=== PATIENT | male | born 1945 | race Caucasian/White ===

== ENCOUNTER → 2017-05-24 | Outpatient (CLI) | payer OTHER, BC ==
[~2017-05-24] MED LIST: ACTOS 45 MG45 M1 PO; ADULT LOW DOSE81 MG PO; ALLOPURINOL 30300 M1 PO; AMARYL4 MG PO; AUGMENTIN 500-1 EACH PO; CARTIA; CELEBREX 200 M200 M1 PO; CELEBREX 200 M200 MG PO; CEPHALEXIN 250250 M1 PO; CLARITIN10 MG PO; COLACE100 MG PO; COZAAR 50 MG TA50 M2 PO; DILTIAZEM ER240 M1 PO; DIOVAN PO; DIOVAN40 MG PO; GLUCOPHAGE1000 MG PO; GLUCOTROL5 MG PO; HYDROCODONE-AP1 EA12 PO; HYTRIN 2MG CAPSU2 M1 PO; LIPITOR10 MG PO; NORCO 5-325 TA1 EACH PO; PROTONIX40 M2 PO; TERAZOSIN PO; TRILIPIX135 MG PO
== END ==
LOC: RAD 10:37
DX: M16.12 Unilateral primary osteoarthritis, left hip (principal); I10 Essential (primary) hypertension

== ENCOUNTER 2018-12-30 13:16 | Inpatient (IN) | payer OTHER, BC ==
[~2018-12-30] VITALS: Ht 172.7 cm; Wt 127.6 kg
--- NOTE | ~2018-12-30 | HC ---
[facility] [place] [address] CONSULTATION Name: ERIC MACK Room #: 461-P ADM IN M.R.#: [id number] Admission: 12/30/18 ������������������ Attend Phys: Ethan Ambrocio MD Discharge: ������������������ Date of : 45 Report #: [id number] THIS REPORT FOR: //name// CC: Breezy Ambrocio DATE OF SERVICE: 01/01/2019 HISTORY OF PRESENT ILLNESS: The patient is a 73-year-old white male who fell in the grocery store, getting out of his car. He sustained a left shoulder dislocation, which was reduced in the Emergency Department. He is noted to be very unsteady with a cane. He has been seen by Neurology, diagnosed with gait, ataxia. MRI of the brain is pending. He was seen by Orthopedics. He is in an immobilizer with transition to a sling p.r.n., can wean out of it p.r.n. No external rotation greater than 30 degrees for 6 weeks. He denies that he hit his head with the fall. We are seeing him in rehabilitation medicine consultation. PAST MEDICAL HISTORY: Includes diabetes mellitus type 2, hypertension, elevated lipids and has a history of diabetic neuropathy and is on Neurontin. Obstructive sleep apnea with CPAP at night, hypertension, elevated cholesterol. MEDICATIONS: Please see the full medication listing. ALLERGIES: JENNIFER INHIBITORS. SOCIAL HISTORY: Lives in a house with , no steps, was driving premorbidly used a walker during the day. a cane at night. is retired and could be of assistance. REVIEW OF SYSTEMS: No current complaints of chest pain, shortness of breath or abdominal discomfort. PAST SURGICAL HISTORY: Includes a prior right shoulder rotator cuff. He has had a hemorrhoidectomy, tonsillectomy, cholecystectomy, cataract surgery bilaterally. HABITS: No history of tobacco or alcohol abuse. REVIEW OF SYSTEMS: No fever or chills. He has premorbid numbness, tingling. No current chest pain, shortness of breath or abdominal discomfort. PHYSICAL EXAMINATION: GENERAL: A 73-year-old pleasant, overweight white male in no obvious distress. VITAL SIGNS: Last recorded temperature 97.7, pulse 103, respirations 20, blood pressure 167/86. The patient is alert. [address] [address] CONSULTATION Name: ERIC MACK Room #: 461-P [facility] IN M.R.#: [id number] Admission: 12/30/18 ������������������ Attend Phys: Ethan Ambrocio MD Discharge: ������������������ Date of : 45 Report #: [id number] HEENT: Appeared to be benign. Facies are symmetric. I did not check his vision. EXTREMITIES: He has functional range of motion of the right upper extremity, strength is a grade 4-/5. Left upper extremity is in the shoulder immobilizer. He can move the thumb and fingers. In his lower extremities, there is no focal calf swelling. Strength is grade 4-/5. DTRs are trace to 1. He has the decreased distal sensation. ASSESSMENT: A 73-year-old white male with the following problem list: 1. Gait ataxia. Neurology has seen him. MRI of the brain is currently pending. 2. Fall with dislocation, left shoulder, status post reduction in the Emergency Department. 3. Diabetes mellitus with premorbid diabetic neuropathy. 4. Hypertension. 5. Hyperlipidemia. 6. Exogenous obesity. 7. Obstructive sleep apnea. PLAN: MRI of the brain is currently pending. Would also like to clarify from Orthopedics when he would be able to start weightbearing through the left upper extremity. PT is to evaluate him as well. We will be glad to follow along with you regarding his rehab therapy needs. I am uncertain at this time if he meets criteria for an acute 5 North rehab stay, but we will follow along for now. ��������������������������������������������� ���������������������������������������� By: ��������������������������������������������� 1125 [id number] Shiv Cadena MD /PMT
[2018-12-30 13:16] VITALS: BP 165/58
[2018-12-30] MEDS ORDERED: METFORMIN HCL500 MG PO (13:38)
[2018-12-30] MEDS ORDERED: GLIPIZIDE ER5 MG PO (13:38)
[2018-12-30] MEDS ORDERED: COLACE100 MG PO (13:39)
[2018-12-30] MEDS ORDERED: LIPITOR80 MG PO (13:39)
[2018-12-30] MEDS ORDERED: COZAAR 25 MG TA25 M1 PO (13:40)
[2018-12-30] MEDS ORDERED: NEURONTIN 300300 M1 PO (13:40)
[2018-12-30] MEDS ORDERED: HYTRIN 2MG CAPSU2 M1 PO (13:40)
[2018-12-30] MEDS ORDERED: DILTIAZEM 24HR240 M2 PO (13:41)
[2018-12-30] MEDS ORDERED: ASPIR 8181 MG PO (13:41)
[2018-12-30] MEDS ORDERED: CELEBREX 200 M200 M1 PO (13:42)
[2018-12-30] MEDS ORDERED: VITAMIN D31000 UNIT PO (13:42)
[2018-12-30] MEDS ORDERED: NEXIUM40 MG PO (13:43)
[2018-12-30] MEDS ORDERED: TRAMADOL 50 MG50 MG PO (15:21)
[2018-12-30] MEDS ORDERED: NAPROXEN375 MG PO (15:21)
[2018-12-30 17:32] LABS: HEMOGLOBIN 12.2 gm/dL (14.0-18.0); MCH 28.9 pg (26.0-34.0); MCHC 32.1 g/dL (28.0-37.0); MCV 90.1 fL (80.0-100.0); RBC 4.22 mil/uL (4.50-6.00); RDW 14.3 % (10.5-14.5); WBC 14.2 thou/uL (4.0-11.0)
[2018-12-30 17:33] VITALS: BP 166/64
[2018-12-30 17:42] LABS: ANION GAP 10 mmol/L (7-16); BUN 24 mg/dL (7-18); CALCIUM 8.6 mg/dL (8.5-10.1); CHLORIDE 104 mmol/L (98-107); CO2 24 mmol/L (21-32); CREATININE 0.9 mg/dL (0.7-1.3); GLUCOSE 232 mg/dL (74-106); POTASSIUM 4.2 mmol/L (3.5-5.1); SODIUM 138 mmol/L (136-145)
[2018-12-30 17:52] LABS: ALBUMIN 3.1 g/dL (3.4-5.0); MAGNESIUM 1.2 mg/dL (1.8-2.4); SGOT 14 U/L (15-37); SGPT 19 U/L (30-65); TOTAL BILIRUBIN 0.6 mg/dL (<0.1-1.0); TOTAL PROTEIN 6.2 g/dL (6.4-8.2); TROPONIN-I <0.06 ng/mL (<0.06)
[2018-12-30 17:55] LABS: ALBUMIN 3.3 g/dL (3.4-5.0)
[2018-12-30 18:25] LABS: TSH 2.186 uIU/mL (0.358-3.740)
[2018-12-30 19:21] LABS: URINE BILIRUBIN NEGATIVE (Negative); URINE BLOOD NEGATIVE (Negative); URINE CLARITY CLEAR; URINE COLOR YELLOW; URINE GLUCOSE-RANDOM* 2+ (Negative); URINE KETONES NEGATIVE (Negative); URINE LEUKOCYTES NEGATIVE (Negative); URINE NITRITE NEGATIVE (Negative); URINE PROTEIN (DIPSTICK) NEGATIVE (Negative); URINE SPECIFIC GRAVITY 1.025 (1.005-1.035); URINE UROBILINOGEN 0.2 E.U./dl (0.2-1.0)
[2018-12-30 19:45] VITALS: BP 144/60
[2018-12-30 20:00] VITALS: BP 144/51
[2018-12-30 20:30] LABS: CASTS None Seen /LPF (None Seen); SQUAMOUS 0-3 Few /LPF (0-3); URINE RBC 0-2 Rare /HPF (0-2); URINE WBC 0-5 Rare /HPF (0-5)
[2018-12-30 20:31] LABS: BACTERIA None Seen /HPF (None Seen); CRYSTALS None Seen /LPF (None Seen); MUCUS 0-3 Light strn/LPF (None Seen)
[2018-12-30] MEDS ORDERED: NEURONTIN600 MG PO (21:47)
--- NOTE | 2018-12-31 03:09 | NUR ---
PATIENT AOX4 MAKES NEEDS KNOWN. PATIENT ADMITTED FOR LEFT SHOULDER DISLOCATION. PAIN CONTROLLED THIS SHIFT. SCD ON. PATIENT HAS IMMOBILIZER ON LEFT SHOULDER. PATIENT USE URINAL. CALLED REHAB FOR PATIENT CONSULT WITH DR. KISER . PATIENT HAS C PAP AT NIGHT O2 SAT >95%. PATIENT NEEDS MAXIMUM ASSISTANCE WITH ADL, BED MOBILITY, TRANSFER X 2 ASSIST AND TOILETING. NEW ORDER TO AMBULATE PATIENT,PATIENT REFUSED TO AMBULATE. PATIENT TOLD THIS NURSE HE TAKES GABAPETIN 600 MG TID AND REQUESTED TRAMADOL FOR PAIN. CALLED [employer] CHARTING CLERK NEW ORDER FOR GABAPETIN AND TRAMADOL. PATIENT IN BED ASLEEP AT THIS TIME BREATHING REGULAR AND UNLABOURED.
[2018-12-31 04:15] VITALS: BP 150/66
[2018-12-31 08:00] VITALS: BP 141/49
--- NOTE | 2018-12-31 10:57 | EKG ---
[address] [address] ELECTROCARDIOGRAM REPORT Name: ERIC MACK Room #: 461-P ADM IN M.R.#: [id number] ������������������ Admission: 12/30/18 ������������������ Attend Phys: Ethan Ambrocio MD Discharge: ������������������ Date of : 45 Report #: [id number] ����������������������������������������������������������������� [id number] THIS REPORT FOR: //name// [facility] Test Date: 2018-12-31 Test Time: 07:20:54 Pat Name: ERIC MACK Department: Room: 461 Gender: M Education Reporter: ALESSANDRO : 1945 Requested By: Darci Oneill Order Number: [id number] MD: Raghu Lagos Measurements Intervals [place] Rate: 62 P: 79 TX: 194 QRS: 58 QRSD: 103 T: 56 QT: 406 QTc: 413 Interpretive Statements Sinus rhythm Nonspecific ST segment abnormality Compared to ECG 09/25/2009 10:09:01 No significant changes Electronically Signed On 12-31-2018 10:57:20 CDT by Raghu Lagos [email or web address] ��������������������������������������������� <ELECTRONICALLY SIGNED> ���������������������������������������� By: Raghu Lagos MD ��������������������������������������������� 12/31/18 1057 0720 9 Raghu Lagos MD /SELENA
[2018-12-31 12:40] LABS: CALCIUM 8.9 mg/dL (8.5-10.1); CREATININE 0.7 mg/dL (0.7-1.3); MAGNESIUM 1.5 mg/dL (1.8-2.4); POTASSIUM 4.6 mmol/L (3.5-5.1)
[2018-12-31 13:16] LABS: HEMATOCRIT 39.4 % (42.0-52.0); HEMOGLOBIN 12.7 gm/dL (14.0-18.0); MCH 28.9 pg (26.0-34.0); MCHC 32.2 g/dL (28.0-37.0); RBC 4.38 mil/uL (4.50-6.00); RDW 14.1 % (10.5-14.5); WBC 10.8 thou/uL (4.0-11.0)
[2018-12-31 15:00] VITALS: BP 159/55
--- NOTE | 2018-12-31 15:25 | NUR ---
PT A&OX4, VSS, DENIES PAIN. PATIENT RIGHT ARM IN SLING. PATIENT SHUFFLES WHEN WALKING AND UNSTEADY. NEUROLOGIST CONSULTED AND IN TO SEE PATIENT. MRI AND CT ORDERS PLACED. PT USES BEDSIDE COMMODE WITH ASSIST AND URINAL. FAMILY AT BEDSIDE, WILL CONTINUE TO MONITOR.
[2018-12-31 17:09] LABS: IgA 156 mg/dL (61-437); IgG 731 mg/dL (700-1600); IgM 83 mg/dL (15-143)
[2018-12-31 19:48] VITALS: BP 162/56
--- NOTE | 2019-01-01 01:29 | NUR ---
PATIENT ASSESSED AND WAS SITTING UP IN CHAIR . HAS A LEFT SLING ON LEFT ARM. ALERT X 4. SKIN WARM AND DRY. RESP EVEN AND UNLABORED. HAVING TROUBLE WALKING LIKES HE SAYS "MY MIND NOT CONNECTED TO MY BODY". [place] IS OK. [place] [facility] [place] PIVOT TO BED. REPOSITIONS SELF . NO SKIN ISSUES. IV SITE HEALTHY HAVING FLUIDS INFUSING WELL. CPAP ON AT NIGHT. REMAINS ALERT X 4.TAKING FLUIDS AND DIET WELL. DENIES ANY PAIN TONIGHT SO FAR. CONT TO MONITOR PAIN . CONT PLAN OF CARE.VOIDS PER URINAL.
[2019-01-01 06:07] LABS: HEMATOCRIT 37.3 % (42.0-52.0); MCH 29.1 pg (26.0-34.0); MCHC 32.2 g/dL (28.0-37.0); MCV 90.4 fL (80.0-100.0); RBC 4.12 mil/uL (4.50-6.00); RDW 14.5 % (10.5-14.5)
[2019-01-01 06:23] LABS: CALCIUM 8.4 mg/dL (8.5-10.1); CREATININE 0.7 mg/dL (0.7-1.3); MAGNESIUM 1.5 mg/dL (1.8-2.4); POTASSIUM 4.3 mmol/L (3.5-5.1)
[2019-01-01 07:30] VITALS: BP 167/86
--- NOTE | 2019-01-01 13:29 | NUR ---
ASSUMED CARE AT 0700, SHIFT ASSESSMENT DONE, MEDS GIVEN, VSS. DENIES PAIN, NAUSEA, VOMITING. WENT FOR MRI THIS AM. WORKED WITH PHYSICAL AND OCCUPATONAL THERAPHY. WALKED OUT IN THE HALLWAY. CARE HANDED OVER TO J LUIS DIEHL AT 1200
--- NOTE | 2019-01-01 15:50 | NUR ---
PT ADMITTED RELATED TO DISLOCATION OF LEFT SHOULDER S/P REDUCTION. CM REVIEWED CHART AND SPOKE WITH CARE TEAM. CM MET WITH PT AND SPOUSE AT BEDSIDE THIS DAY.PT IS A&O X4. CM ROLE INTRODUCED. PT AND SPOUSE INDICATED THAT THEY LIVE IN A HOUSE WITH RAMPS TO ENTER AND NO STEPS INSIDE. PT INDICATED HE HAS 1 STEP TO GET INTO THE SHOWER. PT INDICATED HE HAS A CANE, 3 WALKERS, A FWW, 4WW, AND ANOTHER KIND. PT'S INDICATED THAT THEY WERE HOPEFUL THAT PT MIGHT BE ABLE TO GO TO 5N UPON DC. CONSULT ENTERED. CM TO FOLLOW INDICATED WITH DC PLANNING.
[2019-01-01 19:25] VITALS: BP 162/59
--- NOTE | 2019-01-02 05:47 | NUR ---
ASSESSMENTS COMPLETED. PT A&OX4. NO C/O PAIN. WALKS WITH 1 ASSIST AND A WALKER. PT WEARS A CPAP @ NIGHT. V/S STABLE. USES THE URINAL AND BSC FOR TOILETING.
[2019-01-02 08:02] VITALS: BP 149/58
--- NOTE | 2019-01-02 12:50 | NUR ---
PT A&OX4, VSS, DENIES PAIN. LEFT ARM REMAINS IN SLING. MEDICATION GIVEN ORDERED. NEW IV PLACED D/T OTHER CLOTTING OFF. PATIENT PARTICIPATED WITH PT AND OT TODAY. ASSISTANCE TO BEDSIDE COMMODE. AT BEDSIDE, NO SIGNS OF DISTRESS, WILL CONTINUE TO MONITOR.
[2019-01-02 14:40] VITALS: BP 146/50
--- NOTE | 2019-01-02 17:57 | NUR ---
PATIENT MY POSSIBLY BE ADMITTED TO ACUTE REHAB TOMORROW PENDING BED AVAILABILTIY. IF BED IS NOT AVAILABLE TOMORROW, IT MAY BE TUESDAY BEFORE A BED MAY BE OPEN AT [facility]. HOUSING GRANT ANALYST IS AWARE AND PHYSICIAN UPDATED BY ALEXIA CROSS WITH DR. KISER. THANK YOU FOR THIS REFERRAL.
[2019-01-02 19:07] LABS: ANA INTERPRETATION Negative (())
[2019-01-02 19:30] VITALS: BP 159/64
--- NOTE | 2019-01-03 05:09 | NUR ---
NO CHANGES TO PT STATUS OVERNIGHT. NO SIGNS OR C/O OF DISTRESS. NO C/O PAIN. PT AWAITING BED AVAILABILITY TO TRANSFER TO [facility] REHAB POSSIBLY TODAY. FALL PREC IN PLACE. CALL YI WITHIN REACH
[2019-01-03 07:40] VITALS: BP 149/66
[2019-01-03 14:06] VITALS: BP 140/53
--- NOTE | 2019-01-03 14:56 | NUR ---
IT IS ANTICIPATED THAT PT IS TO DC TO 5N ACUTE INPATIENT REHAB THIS DAY. PT AND SPOUSE ARE AWARE AND AGREEABLE. REPORT TO BE CALLED TO . NO OTHER CM INTERVENTION INDICATED. CASE CLOSED.
--- NOTE | 2019-01-03 17:49 | NUR ---
PT A&OX4, VSS, DENIES PAIN. PATIENT UP TO BATHROOM WITH 1 ASSIST. PT MENTATION AND STRENGTH HAS IMPROVED. PLAN IS TO GET PATIENT INTO REHAB ON 5N, AWAITING MRI SCHEDULED FOR 01/04. PT HAD AN ABNORMAL MRI, HOSPITALIST AND NEUROLOGIST AWARE. NO SIGNS OF DISTRESS, WILL CONTINUE TO MONITOR.
[2019-01-03 20:05] VITALS: BP 168/72
[2019-01-04 00:15] VITALS: BP 153/71
--- NOTE | 2019-01-04 04:41 | NUR ---
ASSUMED CARE OF PT AT 1900HRS. PT AOX4 AND CALLS FOR HELP NEEDED. FALL PRECAUTION IN PLACE. CPAP ON AT NIGHT AND PT WAS ABLE TO SLEEP PART OF THE SHIFT. VSS AND NO S/S OF ACUTE DISTRESS. WILL CONTINUE TO MONITOR.
[2019-01-04 08:38] VITALS: BP 158/73
--- NOTE | 2019-01-04 09:44 | NUR ---
Nutrition: Assessed due to high BMI (42.8-class III high risk) and early day 5 LOS. Planned transfer to rehab soon once bed available per EMR. Pt off the unit at time of RD visit, but spouse present for interview. Denies that she or pt have any nutrition concerns. Discussed his hx DM II. reports past DM education courses x2 actually and feel comfortable with nutrition info. BG very well controlled, with fasting BG 100 mg/dl per 01/04, BG range 125-139 mg/dl per 01/03. On metformin, glipizide. No recent meal intakes recorded, but was eating 70-80% at start of the week (01/01). Recent BM 01/03. Deconditioning noted per provider notes. denied any active nutrition problems - keep as low nutrition risk. Will follow up again on rehab if new concerns arise.
[2019-01-04 14:41] VITALS: BP 130/68
--- NOTE | 2019-01-04 15:09 | NUR ---
PT A&OX4, VSS, DENIES PAIN. PATIENT 1 ASSIST TO BATHROOM USING WALKER. AT BEDSIDE. MRI COMPLETED TODAY. PATIENT MOVES AND SPEAKS SLOWLY BUT IMPROVED. NO SIGNS OF DISTRESS. PT IS NOT USING SLING AT THIS TIME AND WANTS TO MOVE HIS LEFT ARM MORE. WILL CONTINUE TO MONITOR.
[2019-01-04] MEDS ORDERED: ENOXAPARIN40 MG/0.1 SUBQ (15:14)
[2019-01-04] MEDS ORDERED: CYMBALTA30 MG PO (15:14)
[2019-01-04] MEDS ORDERED: MIRALAX17 GM PO (15:14)
[2019-01-04] MEDS ORDERED: TYLENOL325 MG PO (15:14)
--- NOTE | 2019-01-06 17:08 | HC ---
[facility] [place] [address] CONSULTATION Name: ERIC MACK Room #: 461-P [facility] IN M.R.#: [id number] Admission: 12/30/18 ������������������ Attend Phys: Ethan Ambrocio MD Discharge: 01/04/19 ������������������ Date of : 45 Report #: [id number] THIS REPORT FOR: //name// CC: Breezy Ambrocio DATE OF SERVICE: 01/01/2019 HISTORY OF PRESENT ILLNESS: This is a 73-year-old male patient, who was seen by me for evaluation of his ambulation difficulty. It started 2 years ago spontaneously without any trauma. He does not know any aggravating or relieving factors for that. He fell down and had injury to his shoulder. He was seen at [facility] and they have done multiple testings in this patient, which included MRI of the brain in the past. They thought the patient's symptoms were secondary to neuropathy, which is secondary to diabetes. He saw a neurologist at the [facility]. He does not know if they did an EMG on him or not. REVIEW OF SYSTEMS: Positive for multiple problems. The patient is a known diabetic. He has a history of neuropathy. He has a history of hypertension and hyperlipidemia. He had recurrent falls. He does have longstanding gait disturbances. He had knee surgery in the past. He had a pilonidal cyst, hemorrhoidectomy, and cataract surgery. He has a history of sleep apnea and uses CPAP at night. He has a history of high cholesterol. He denies any history of stroke. He denies any new eye, ENT, cardiac, respiratory, GI, , constitutional, dermatological, hematological, psychiatric, throat, or allergic symptom associated with present symptomatology. PAST MEDICAL HISTORY: Positive for multiple falls. FAMILY HISTORY: Negative for any early age stroke. SOCIAL HISTORY: The patient denies the abuse of alcohol. PHYSICAL EXAMINATION: Indicates that he is alert. He is responsive. He can follow simple commands. His speech looks intact. He indicates his fund of knowledge and memory is at his baseline. Cranial nerve examination 2-12 looks unremarkable. His strength, sensation, reflexes, and tone looks symmetrical. He can tell the position sense. Pulses are difficult to feel. His reflexes are diminished in generalized fashion, but trace, knee, appeared to be present. I could not look at the fundus. There is no cerebellar sign. There is no meningeal sign. This is an obese individual whose pulses are difficult to feel. He does not have any edema, cyanosis, or jaundice. The blood pressure is 167/86, pulse is 103, and temperature is 97.7. LABORATORY DATA: White count is 9. Sodium is 140. He did have an MRI of the [place] [address] CONSULTATION Name: ERIC MACK Room #: 461-P [facility] IN M.R.#: [id number] Admission: 12/30/18 ������������������ Attend Phys: Ethan Ambrocio MD Discharge: 01/04/19 ������������������ Date of : 45 Report #: [id number] IMPRESSION: This patient's falls are because of probably a combination of factors. I suspect a neuropathy is playing a part, but that does not appear to be the sole contributor to the patient's symptoms. There is nothing in the brain, which is causing the patient his pathology. He needs an EMG. I will suggest doing an MRI of the spine to make sure there is no pathology there. He already [place] neurologist [place] and he goes to them. They have his records. Most of the workup need to be done as an outpatient and it may be desirable to let him go back to his own physician for the further workup with neurologist since he already has a neurologist. ��������������������������������������������� <ELECTRONICALLY SIGNED> ���������������������������������������� By: Marquise Reyes MD ��������������������������������������������� 01/06/19 1708 1208 [id number] Marquise Reyes MD /nt
== END 2019-01-04 18:39 | DRG 563 ==
LOC: ER 13:16 → 4W 17:00 → EROBS 17:00 → 4W 19:34
PROVIDERS: Emergency Medicine; Psychiatry & Neurology Neurology; ADMIT Internal Medicine
DX: S43.005A Unspecified dislocation of left shoulder joint, initial encounter (principal); Z68.41 Body mass index [BMI] 40.0-44.9, adult; R27.0 Ataxia, unspecified; E11.40 Type 2 diabetes mellitus with diabetic neuropathy, unspecified; I10 Essential (primary) hypertension; E78.5 Hyperlipidemia, unspecified; Z96.651 Presence of right artificial knee joint; E78.00 Pure hypercholesterolemia, unspecified; G47.33 Obstructive sleep apnea (adult) (pediatric); E66.09 Other obesity due to excess calories; K59.00 Constipation, unspecified; W18.39XA Other fall on same level, initial encounter; Y93.89 Activity, other specified; Y92.89 Other specified places as the place of occurrence of the external cause; Y99.8 Other external cause status; Z90.49 Acquired absence of other specified parts of digestive tract; Z98.42 Cataract extraction status, left eye; Z98.41 Cataract extraction status, right eye; Z79.82 Long term (current) use of aspirin; Z79.899 Other long term (current) drug therapy
CPT/HCPCS: 10040

== ENCOUNTER 2019-01-04 16:49 | Inpatient (IN) | payer OTHER, BC ==
[~2019-01-04] VITALS: Ht 170.2 cm; Wt 95.7 kg
--- NOTE | ~2019-01-04 | PLAN ---
[facility] [place] [address] REHAB UNIT PLAN OF CARE Name: ERIC MACK Room #: 505-P ADM IN M.R.#: [id number] Admission: 01/04/19 ������������������ Attend Phys: Shiv Cadena MD Discharge: ������������������ Date of : 45 Report #: [id number] THIS REPORT FOR: //name// CC: Shiv Butler DATE OF SERVICE: 01/06/2019 PROGRESS NOTE/OVERALL PLAN OF CARE: The patient is seen back today in followup. He was seen earlier. Last recorded temperature 36.7, pulse 53, respirations 18, blood pressure 153/81. The patient has been involved in the therapy program. He has been working on transfers and standby assistance. Gait min assist 175 feet with front-wheeled walker. In occupational therapy, lower body dressing is min assist. He is allowed weightbearing as tolerated to that left upper extremity. In speech therapy, he does have mild comprehensive deficits with memory mild to moderately impaired. Cognition is moderately impaired. He noted he had some problems with memory premorbidly. ASSESSMENT: A 73-year-old white male with the following problem list: 1. Cervical spine syrinx with gait ataxia. He does have ataxic movements with his ambulation, needing a walker for balance and support. 2. Fall with dislocation, left shoulder, status post reduction. 3. Diabetes mellitus with premorbid diabetic neuropathy. 4. Hypertension. 5. Hyperlipidemia. 6. Exogenous obesity. 7. Obstructive sleep apnea. PLAN: The overall plan of care is based on the preadmission screen, post-admission physician evaluation and information garnered from therapy assessments. 1. Estimated length of stay is probably around 10 days to 2 weeks. 2. Medical prognosis is reasonably good. 3. Anticipated interventions includes the interdisciplinary acute inpatient rehabilitation program. 4. Anticipated functional outcomes would be for the patient to become modified independent with transfers, mobility, ADLs as well as improvement with cognition, communication, so that he can return back to the home setting. ADDENDUM OVERALL PLAN OF CARE: The discharge destination is going to be back home where he lives with his . Expected therapy by discipline includes PT, OT and [address] [address] REHAB UNIT PLAN OF CARE Name: ERIC MACK Room #: 505-P ADM IN [facility].#: [id number] Admission: 01/04/19 ������������������ Attend Phys: Shiv Cadena MD Discharge: ������������������ Date of : 45 Report #: [id number] speech 1 hour per day each five days a week throughout the duration of the acute inpatient rehabilitation stay. ��������������������������������������������� ���������������������������������������� By: ��������������������������������������������� 1106 1614 Shiv Cadena MD /nt
--- NOTE | ~2019-01-04 | H ---
[facility] [place] [address] HISTORY AND PHYSICAL Name: ERIC MACK Room #: 505-P ADM IN M.R.#: [id number] Admission: 01/04/19 ������������������ Attend Phys: Shiv Cadena MD Discharge: ������������������ Date of : 45 Report #: [id number] THIS REPORT FOR: //name// CC: Shiv Butler DATE OF SERVICE: 01/04/2019 HISTORY OF PRESENT ILLNESS: The patient is a 73-year-old male who fell in the grocery store getting out of his car. He sustained a left shoulder dislocation, which was reduced in the Emergency Department. He is noted to be unsteady with a cane. He was seen by Neurology and diagnosed with gait ataxia. MRI of the brain actually showed evidence of a syrinx from the cervical level down to the thoracic level spanning from C6-T1. This was compared to an MRI in 2015 and was noted to be similar when compared to a prior exam. No focal cord expansion associated with it. Neurology is recommending that the patient have an outpatient evaluation including an EMG and recommended therapy to further improve his gait. As far as the shoulder, he was placed initially in an immobilizer and now has a sling that he can use as needed. He is allowed to weightbear through that left hand with the walker. He has had a significant decline from his premorbid functional status and has been admitted now for acute in-hospital inpatient rehabilitation. PAST MEDICAL HISTORY: Includes diabetes mellitus type 2, hypertension, elevated lipids, history of diabetic neuropathy, on Neurontin; obstructive sleep apnea with CPAP at night, hypertension, and elevated cholesterol. MEDICATIONS: Please see the full medication listing. ALLERGIES: JENNIFER INHIBITORS. SOCIAL HISTORY: Lives in a house with , no steps, was driving premorbidly utilizing a walker during the day and cane at night. is retired and could be of assistance. REVIEW OF SYSTEMS: No current complaints of chest pain, shortness of breath, and abdominal discomfort. PAST SURGICAL HISTORY: Includes prior right shoulder rotator cuff. He has had a hemorrhoidectomy, tonsillectomy, cholecystectomy, cataract surgery bilaterally. HABITS: No history of tobacco or alcohol abuse. REVIEW OF SYSTEMS: No current complaints of chest pain, shortness of breath or abdominal discomfort. No complaints of fever or chills. No headache, shoulder [facility] [address] [place] [address] HISTORY AND PHYSICAL Name: ERIC MACK Room #: 505-P [facility] IN M.R.#: [id number] Admission: 01/04/19 ������������������ Attend Phys: Shiv Cadena MD Discharge: ������������������ Date of : 45 Report #: [id number] pain is gradually improving. He has the concern with his gait and balance, but no focal other extremity pain complaints. No bowel or bladder changes. PHYSICAL EXAMINATION: GENERAL: A 73-year-old pleasant, overweight white male in no obvious distress. VITAL SIGNS: Last recorded temperature 98.1, pulse 63, respirations 18, and blood pressure 155/45. The patient is alert, pleasant. HEENT: Appeared to be benign. NEUROLOGIC: Cranial nerves are grossly intact. Facies appeared to be symmetric. CHEST: Sounded clear to auscultation. CARDIOVASCULAR: Regular rate and rhythm. ABDOMEN: Bowel sounds positive. Some exogenous obesity, soft, nontender. GENITOURINARY AND RECTAL: Deferred. EXTREMITIES: He has functional range of motion of the right upper extremity, strength is grade 4-/5, left upper extremity. He is starting to use a little bit more within his range of motion precautions. Strength is probably grade 4-. Lower extremities, there is no focal calf swelling. Strength is grade 4-/5. DTRs are trace to 1. He has decreased distal sensation. DTRs are trace. He does have some mild coordination and does when up ambulating have gait ataxia with decreased balance. He has some decreased range of motion of the left ankle. He has had prior surgery at that area. ASSESSMENT: This is a 73-year-old white male with the following problems: 1. Cervical spine syrinx with gait ataxia. We will need followup. Further evaluation with Neurology including electrodiagnostic testing. 2. Fall with dislocation, left shoulder, and status post reduction. He has decreased range of motion allowed as per Orthopedics. 3. Diabetes mellitus with premorbid diabetic neuropathy. 4. Hypertension. 5. Hyperlipidemia. 6. Exogenous obesity. 7. Obstructive sleep apnea. PLAN: From a postadmission physician evaluation perspective, there are no relevant changes since the preadmission screening. Please see the above review of prior and current medical and functional conditions and comorbidities. Please see the patient's previous and current functional status. As far as risk of complications, the patient has multiple medical comorbidities as noted above. Initial plan of care involves the interdisciplinary acute inpatient rehabilitation program with goal of maximizing the patient's functional dependency, can hopefully return back to his prior living situation. Measurable functional goals would be for the patient to become modified independent with transfers, mobility and ADLs and hopefully achieve a level that he was before. Prognosis is reasonably good with estimated length of stay probably at least 10 days to 2 weeks. The patient notes he has a prior history of some memory [facility] [address] [place] [address] HISTORY AND PHYSICAL Name: ERIC MACK Room #: 505-P ADM IN M.R.#: [id number] Admission: 01/04/19 ������������������ Attend Phys: Shiv Cadena MD Discharge: ������������������ Date of : 45 Report #: [id number] issues. I am holding off speech therapy at this time, but we will see if he needs some further input in that regard. Potential barriers would include his above noted comorbidities and decreased functional status. The patient meets diagnostic criteria for an acute in-hospital inpatient rehabilitation stay. He meets the medical necessity criteria. He does have the tolerance for therapies and has appropriate discharge goals back to the home setting. ��������������������������������������������� ���������������������������������������� By: ��������������������������������������������� 0837 1152 Shiv Cadena MD /T[place]
[~2019-01-04 16:49] MED LIST changes: +ASPIR 8181 MG PO; +COZAAR 25 MG TA25 M1 PO; +CYMBALTA30 MG PO; +DILTIAZEM 24HR240 M2 PO; +ENOXAPARIN40 MG/0.1 SUBQ; +GLIPIZIDE ER5 MG PO; +LIPITOR80 MG PO; +METFORMIN HCL500 MG PO; +MIRALAX17 GM PO; +NAPROXEN375 MG PO; +NEURONTIN 300300 M1 PO; +NEURONTIN600 MG PO; +NEXIUM40 MG PO; +TRAMADOL 50 MG50 MG PO; +TYLENOL325 MG PO; +VITAMIN D31000 UNIT PO
[2019-01-04 20:00] VITALS: BP 155/45
--- NOTE | 2019-01-05 02:57 | NUR ---
PT ADMITTED TO 5N AT SHIFT CHANGE. ASSESSMENT DONE AND VSS. MEDS GIVEN ORDERED AND WELL TOLERATED. FALL PRECAUTIONS IN PLACE. SLEEPING WELL. WILL CONTINUE TO MONITOR.
[2019-01-05 05:49] LABS: HEMATOCRIT 37.3 % (42.0-52.0); HEMOGLOBIN 12.1 gm/dL (14.0-18.0); MCH 29.1 pg (26.0-34.0); MCHC 32.5 g/dL (28.0-37.0); MCV 89.7 fL (80.0-100.0); RBC 4.16 mil/uL (4.50-6.00); RDW 14.3 % (10.5-14.5); WBC 9.6 thou/uL (4.0-11.0)
[2019-01-05 05:59] LABS: CALCIUM 9.1 mg/dL (8.5-10.1); CREATININE 0.9 mg/dL (0.7-1.3); POTASSIUM 3.9 mmol/L (3.5-5.1)
[2019-01-05 07:15] VITALS: BP 147/58
--- NOTE | 2019-01-05 11:58 | NUR ---
chart review. pt new to acute rehab. pt up in recliner chair with ron at bedside. intro to cm, dcp, transition of care, and team meeting. pt preferrs going by steven, he is a & o x 3 and able to make his needs know. pt and reported " live in house, have ramp, when moved 5 years ago wanted a senior ready home. toilet riser and have higher toilet, have grab bars and shower chair. 1 step into shower. home cpap. fww, cane and 4ww with seat. no past rehab."/steven and ron. will cont following as needed for dc needs.
--- NOTE | 2019-01-05 12:38 | NUR ---
Nutrition: pt admitted with non traumatic spinal dysfunction to rehab unit. Hx DM but only on heart healthy diet. BG is well controlled so further diet restriction not needed. On glipizide/metformin. recently reported attendance at DM education courses twice in the past. PO intake 100% this am. % intake records not fully recorded but 70-80% earlier this week. Pt voices he likes the food and has a good appetite, no food preferences provided. Some weight discrepancies likely bedsale related, recent weights 282# and 211#. Pt feels his UBW is 230# and he would be happy if he lost some weight. Will follow for accuracy. Consider low risk at this time.
--- NOTE | 2019-01-05 16:51 | NUR ---
ASSUMED CARE OF PT AT 0715. PT IS A&OX4 AND VITAL SIGNS ARE STABLE. PT DENIES PAIN AND PARTICIPATED IN SCHEDULED THERAPIES. PT REQUESTED SHOWER AND WAS ABLE TO SHOWER THIS AM WITH OT. VISITED PT AND WAS ABLE TO ASK QUESTIONS ABOUT ROUTINE. ACCU CHECKS BID AND MANAGED WITH PO MEDICAITONS. PT IS FORGETFUL AT TIMES AND HARD OF HEARING. CALLS APPROPRATELY FOR ASSISTANCE. FALL PRECAUITONS IN PLACE AND NURSING WILL CONTINUE TO MONITOR.
[2019-01-05 19:18] VITALS: BP 143/69
--- NOTE | 2019-01-06 00:44 | NUR ---
ASSUMED PT CARE AT 1915. ALERT AND ORIENTED X4 ABLE TO MAKE HIS NEEDS KNOWN. ASSISTED TO BATHROOM BEFORE BEDTIME. DENIES PAIN, SOB, N/V.PT ASSESSMENT DONE AND VSS. LEFT SHOULDER WBA, CAN'TT ROTATE MORE THAN 30 DEGREE. MEDS GIVEN ORDERED AND WELL TOLERATED. LOVENOX GIVEN ORDERD AND SCD APPLIED. PT USES CPAP AT NIGHT. OFFERED SUPPORTIVE CARE. ENCOURAGED PT TO VOICE HIS NEEDS. FALL PRECAUTIONS IN PLACE. CALL LIGHT WITHIN REACH. SLEEPING WELL. WILL CONTINUE TO MONITOR.
[2019-01-06 07:45] VITALS: BP 153/81
--- NOTE | 2019-01-06 14:10 | NUR ---
ASSUMED CARES AT 0700. PT AWAKE, ALERT AND ORIENTED*4. DENIES PAIN AT THIS TIME. VITALS REMAIN STABLE. PT PARTICIPATED IN ALL THERAPIES AND TOLERATED WELL. MULTIPLE TRIPS TO THE BATHROOM WITH 1 MIN ASSIST, GB AND WALKER. Q1H VISUAL CHECKS. CALL LIGHT WITHIN REACH. FALL PRECAUTIONS IN PLACE
[2019-01-06 20:06] VITALS: BP 152/56
--- NOTE | 2019-01-07 07:04 | NUR ---
ASSESSMENT: PT REMAIN ALERT AND ORIENT TIMES FOUR. UP WITH SBA. NO CONCERNS VOICED. THIS RN ASSUMED CARE OF THIS PT AT 0000, RECEIVING REPORT FROM FAZAL ARAMBULA.
[2019-01-07 08:00] VITALS: BP 135/65
--- NOTE | 2019-01-07 13:25 | NUR ---
ASSUMED CARE OF PT AT 0715. PT IS A&OX4. APPEARS TO HAVE SOME CONFUSION. DENIES PAIN AT THIS TIME. IS STABLE. IS UP WITH STANDBY ASSIST, GB, & W TO BATHROOM & DINNING ROOM FOR ALL MEALS. HAS ACCU CHECKS IN AM ONLY. IS ON ROOM AIR, BUT USES CPAP AT HS. PT REPORTED THAT HE TAKES 4 MG OF TERAZOSIN IS CURRENTLY ON 2 MG. DOCTOR SAUNDRA NOTIFIED. PT REPORTED HAVING AN INCONT EPISODE AT HS. FALL PRECAUTIONS & HOURLY ROUNDING MAINTAINED. LABS & VITALS REVIEWED. WILL CONTINUE TO MONITOR.
--- NOTE | 2019-01-07 13:56 | NUR ---
ASSUMED CARE OF PT AT 1300. PT IS A&OX4 AND VITAL SIGNS ARE STABLE. ACCU CHECKS IN AM, MANAGED WITH PO MEDICATIONS. IS AT THE BEDSIDE. REPORTS CONTINUED BLADDER INCONTINENCE, FREQUENCY, AND URGENCY. PT ON ROOM AIR AND MAINTAINING SPO2 >90%. FALL PRECAUTIONS IN PLACE AND NURSING WILL CONTINUE TO MONITOR.
[2019-01-07 20:14] VITALS: BP 139/54
--- NOTE | 2019-01-08 02:37 | NUR ---
PT ASSESSMENT DONE AND VSS. MED GIVEN ORDERED AND WELL TOLERATED. FALL PRECAUTIONS IN PLACE. SLEEPING WELL. WILL CONTINUE TO MONITOR.
--- NOTE | 2019-01-08 15:31 | NUR ---
ASSUMED CARES AT 0700. PT AWKE, ALERT AND ORIENTED*4. DENIES PAIN. VITALS REMAIN STABLE. ABDOMEN SOFT AND OBESE, BS ACTIVE*4, PT REPORTED MULTIPLE LOOSE STOOLS TODAY, IMMODIUM ADMINISTERED AND ALL LAXATIVES AND STOOL SOFTENERS WITHHELD. UP WITH SBA, GB AND WALKER AND TOLERATED WELL. Q1H VISUAL CHECKS. FALL PRECAUTIONS IN PLACE. CALL LIGHT WITHIN REACH
[2019-01-08 20:22] VITALS: BP 139/42
--- NOTE | 2019-01-09 05:04 | NUR ---
The pt. was med. compliant, A/O x3, continent, gait belt used, no c.o. diahhrea or loose stools. CPAP used and pt. slept well tonite.
[2019-01-09 07:20] VITALS: BP 117/45
--- NOTE | 2019-01-09 12:16 | NUR ---
team meeting, recommendation: dc 20th outpt (pt), to assist with medication management.
[2019-01-09 19:58] VITALS: BP 142/56
--- NOTE | 2019-01-09 20:32 | NUR ---
PATIENT ALERT AND ORIENTED WITH AT BEDSIDE DURING THE DAY. PATIENT PLEASANT AND COOPERATIVE WITH POC AND CALLS FOR ASSISTANCE FOR AMBULATION. NO COMPLAINTS OF PAIN. LOOSE STOOL AND REQUESTED IMODIUM.
--- NOTE | 2019-01-10 03:53 | NUR ---
ASSUMED CARE OF PT AT 1915. PT IS A&OX4 AND VITAL SIGNS ARE STABLE. PT DENIES PAIN. ASSISTED TO BED AT 2099. CPAP IN PLACE. CHANGING POSITIONS IN BED INDEPENDENTLY. FALL PRECAUITONS IN PLACE AND NURSING WILL CONTINUE TO MONITOR.
[2019-01-10 06:02] LABS: ABSOLUTE NEUTROPHILS 4.7 thou/uL (1.4-8.2); BASOPHILS 0.9 % (0.0-2.0); HEMATOCRIT 37.6 % (42.0-52.0); HEMOGLOBIN 12.2 gm/dL (14.0-18.0); LYMPHOCYTES 26.9 % (24.0-44.0); MCH 29.1 pg (26.0-34.0); MCHC 32.4 g/dL (28.0-37.0); MCV 89.9 fL (80.0-100.0); PLATELET COUNT 249 thou/uL (150-400); POLYS 57.2 % (36.0-66.0); RBC 4.19 mil/uL (4.50-6.00); RDW 14.1 % (10.5-14.5); WBC 8.1 thou/uL (4.0-11.0)
[2019-01-10 06:17] LABS: CALCIUM 8.8 mg/dL (8.5-10.1); CREATININE 0.8 mg/dL (0.7-1.3)
[2019-01-10 06:29] LABS: MAGNESIUM 1.6 mg/dL (1.8-2.4)
[2019-01-10 08:07] VITALS: BP 114/57
[2019-01-10 19:52] VITALS: BP 139/52
--- NOTE | 2019-01-10 20:20 | NUR ---
PATIENT ALERT AND ORIENTED WITH SPOUSE AT BEDSIDE OFF / ON THROUGHOUT THE DAY. PATIENT COMPLIANT WITH POC AND ANTICIPATING DISCHARGE THIS WEEK. NO STOOL TODAY AND DOES NOT WANT ANY LAXATIVES.
--- NOTE | 2019-01-11 04:16 | NUR ---
PATIENT ALERT AND ORIENTED X4. DENIES PAIN. NO STOOLS NOTED THIS SHIFT. SLEPT MOST OF THE SHIFT.
[2019-01-11 08:00] VITALS: BP 118/58
--- NOTE | 2019-01-11 10:23 | NUR ---
ASSUMED CARE AT 0700. PATIENT IS ALERT AND ORIENTED X4. PATIENT QUARLES'S, KAYAK MAKER ARE EQUAL. LUNGS ARE CLEAR AND DEMINISHED. ABD IS SOFT WITH BSX4. PATIENT IS VOIDING MADAY COLORED URINE. PATIENT IS UP WITH SBA WITH GAIT BELT AND WALKER. UP IN DINING ROOM FOR MEALS. FALL AND SAFETY PROTOCOLS IN PLACE. DENIES ANY PAIN AT THIS TIME. PLAN D/C IN A.M. CONTINUES TO PROGRESS TOWARDS D/C GOALS. WILL CONTINUE TO MONITER.
--- NOTE | 2019-01-11 12:28 | NUR ---
DISCHARGE PLANNING. OUTPATIENT THERAPY RECOMMENDED AT DISCHARGE. RX FAXED TO [facility]. VERIFIED RECEIVED WITH PERNELL. PERNELL TO FACILITATE PATIENTS OUTPT THERAPY NEEDS.
--- NOTE | 2019-01-11 12:55 | NUR ---
PATIENT CALLED FOR NOON GABAPENTIN BECAUSE THIS IS HOW HE WILL TAKE IT AT HOME. MED WILL BE GIVEN AT 2 PM. WILL CONTINUE TO [facility].
--- NOTE | 2019-01-11 13:00 | NUR ---
cm visited with pt and on time for dc tomorrow " i going try be here around 9am so leave around 10am"/ron. cm passed on information to bedside nurse
[2019-01-11] MEDS ORDERED: MIRALAX17 GM PO (14:32)
[2019-01-11 19:30] VITALS: BP 143/57
[2019-01-12 07:57] VITALS: BP 143/57
[2019-01-12 08:00] VITALS: BP 138/64
[2019-01-12] MEDS ORDERED: CYMBALTA30 MG PO (09:15)
[2019-01-12 09:53] VITALS: BP 143/57
--- NOTE | 2019-01-12 10:01 | NUR ---
DISCHARGE PLANNING: REFERRAL HAS BEEN FAXED TO DR. FILIBERTO MAGAÑA A MOVEMENT SPECIALIST NEUROLOGIST. PER MD RECOMMENDATIONS, PT IS TO FOLLOW UP SOON POSSIBLE WITH NEUROLOGY, AND THIS IS THE MOVEMENT SPECIALIST WITH THE FIRST AVAILABLE APPT IN . THE OTHERS WERE BOOKED OUT UNTIL AFTER April, AND THIS MD WAS APPROVED BY TAY ROMAN NP AND MARTITA BENSON NP. CLINIC TO CALL PT AND HIS TO SET UP THE APPOINTMENT, AND THEY HAVE BEEN GIVEN ALL OF THE ABOVE INFORMATION AND VERBALIZED UNDERSTANDING. PT'S IS VERY KNOWLEDGEABLE OF HIS CONDITION AND ASKED APPROPRIATE QUESTIONS.
--- NOTE | 2019-01-12 20:20 | NUR ---
PATIENT ALERT AND ORIENTED WITH SPOUSE AT BEDSIDE. PATIENT DISCHARGE TO HOME WITH SPOUSE ABOUT 1045 IN STABLE CONDITION WITH DISCHARGE INSTRUCTIONS ALL PERSONAL BELONGINGS VIA W/C TO FRONT OF HOSPITAL TO PERSONAL VEHICLE SPOUSE WAS DRIVING. ASSISTED WITH FOLLOW-UP APPOINTMENTS.
== END 2019-01-12 10:45 | disposition home or self-care (01) | DRG 57 ==
LOC: ENTRNSPT 01-12 10:25 → EDTRNSPTSTS 01-12 10:43
PROVIDERS: Nurse Practitioner; Nurse Practitioner Family; ADMIT Physical Medicine & Rehabilitation
PROC: 5A09357 Assistance with Respiratory Ventilation, Less than 24 Consecutive Hours, Continuous Positive Airway Pressure (ICD-10-PCS; principal; 2019-01-05)
PROC: 5A09357 Assistance with Respiratory Ventilation, Less than 24 Consecutive Hours, Continuous Positive Airway Pressure (ICD-10-PCS; 2019-01-07)
PROC: 5A09457 Assistance with Respiratory Ventilation, 24-96 Consecutive Hours, Continuous Positive Airway Pressure (ICD-10-PCS; 2019-01-09)
DX: G95.0 Syringomyelia and syringobulbia (principal); R26.0 Ataxic gait; G47.33 Obstructive sleep apnea (adult) (pediatric); S43.005A Unspecified dislocation of left shoulder joint, initial encounter; W18.39XA Other fall on same level, initial encounter; E11.40 Type 2 diabetes mellitus with diabetic neuropathy, unspecified; I10 Essential (primary) hypertension; E78.5 Hyperlipidemia, unspecified; E78.00 Pure hypercholesterolemia, unspecified; R47.81 Slurred speech; E66.09 Other obesity due to excess calories; Y92.89 Other specified places as the place of occurrence of the external cause; Y93.89 Activity, other specified; Y99.8 Other external cause status; Z68.33 Body mass index [BMI] 33.0-33.9, adult; Z88.8 Allergy status to other drugs, medicaments and biological substances; Z90.49 Acquired absence of other specified parts of digestive tract; Z98.41 Cataract extraction status, right eye; Z98.42 Cataract extraction status, left eye
CPT/HCPCS: 10112

== ENCOUNTER 2019-02-27 11:37 | Emergency (ER) | payer OTHER, BC ==
[~2019-02-27] VITALS: Ht 172.7 cm; Wt 127.0 kg
[2019-02-27 12:30] LABS: ABSOLUTE NEUTROPHILS 5.9 thou/uL (1.4-8.2); BASOPHILS 0.9 % (0.0-2.0); EOSINOPHILS 3.2 % (0.0-3.0); HEMATOCRIT 39.3 % (42.0-52.0); LYMPHOCYTES 22.7 % (24.0-44.0); MCH 29.7 pg (26.0-34.0); MCHC 33.1 g/dL (28.0-37.0); MCV 89.9 fL (80.0-100.0); MONOCYTES 8.5 % (1.0-8.0); PLATELET COUNT 247 thou/uL (150-400); POLYS 64.7 % (36.0-66.0); RBC 4.38 mil/uL (4.50-6.00); RDW 14.6 % (10.5-14.5); WBC 9.1 thou/uL (4.0-11.0)
[2019-02-27 12:38] LABS: ANION GAP 10 mmol/L (7-16); BUN 33 mg/dL (7-18); CALCIUM 9.8 mg/dL (8.5-10.1); CHLORIDE 104 mmol/L (98-107); CO2 26 mmol/L (21-32); CREATININE 1.4 mg/dL (0.7-1.3); GLUCOSE 110 mg/dL (74-106); POTASSIUM 4.3 mmol/L (3.5-5.1); SODIUM 140 mmol/L (136-145)
[2019-02-27 12:45] LABS: TROPONIN-I <0.06 ng/mL (<0.06)
[2019-02-27 14:34] LABS: URINE BILIRUBIN NEGATIVE (Negative); URINE BLOOD NEGATIVE (Negative); URINE CLARITY CLEAR; URINE COLOR YELLOW; URINE GLUCOSE-RANDOM* NEGATIVE (Negative); URINE KETONES NEGATIVE (Negative); URINE LEUKOCYTES-REFLEX NEGATIVE (Negative); URINE NITRITE-REFLEX NEGATIVE (Negative); URINE PROTEIN (DIPSTICK) NEGATIVE (Negative); URINE SPECIFIC GRAVITY 1.025 (1.005-1.035); URINE UROBILINOGEN 0.2 E.U./dl (0.2-1.0)
[2019-02-27 16:17] VITALS: BP 147/63
--- NOTE | 2019-02-27 17:07 | EKG ---
[place] [address] [facility] [place] [address] ELECTROCARDIOGRAM REPORT Name: ERIC MACK Room #: DEP RBODY Phillips#: [id number] Admission: 02/27/19 Attend Phys: Discharge: 02/27/19 Date of : 45 Report #: [id number] THIS REPORT FOR: //name// [facility] ED Test Date: 2019-02-27 Test Time: 12:02:33 Pat Name: ERIC MACK Department: Room: Gender: M [employer]visor [employer]: nmd : 1945 Requested By: Fredrick Corley Order Number: [id number] MD: Jake Christine Measurements Intervals [place] Rate: 67 P: 51 MT: 209 QRS: 28 QRSD: 97 T: 49 QT: 381 QTc: 403 Interpretive Statements Sinus rhythm No significant abnormality Compared to ECG 12/31/2018 07:20:54 No significant change was found Electronically Signed On 02-27-2019 17:07:42 ASSOCIATE BUYER by Jake Christine [email or web address] <ELECTRONICALLY SIGNED> By: Jake Christine MD, [facility] 02/27/19 1707 1202 1202 Jake Christine MD, FACC /EPI
== END 2019-02-27 16:19 | disposition home or self-care (01) ==
LOC: ER 11:37
PROVIDERS: Emergency Medicine
DX: E86.0 Dehydration (principal); R42 Dizziness and giddiness; I10 Essential (primary) hypertension; E78.00 Pure hypercholesterolemia, unspecified; E11.9 Type 2 diabetes mellitus without complications; G47.30 Sleep apnea, unspecified; Z96.651 Presence of right artificial knee joint; Z90.49 Acquired absence of other specified parts of digestive tract; Z88.8 Allergy status to other drugs, medicaments and biological substances

== ENCOUNTER → 2019-06-08 | Outpatient (CLI) | payer OTHER, BC | LOC: SJCVC 13:12 | DX: I44.0 Atrioventricular block, first degree (principal); I25.10 Atherosclerotic heart disease of native coronary artery without angina pectoris; E11.9 Type 2 diabetes mellitus without complications; I10 Essential (primary) hypertension; E78.00 Pure hypercholesterolemia, unspecified; I65.23 Occlusion and stenosis of bilateral carotid arteries; G47.33 Obstructive sleep apnea (adult) (pediatric); Z79.4 Long term (current) use of insulin; Z90.49 Acquired absence of other specified parts of digestive tract; Z96.651 Presence of right artificial knee joint; Z79.899 Other long term (current) drug therapy ==

== ENCOUNTER 2019-10-10 20:43 | Emergency (ER) | payer OTHER, BC ==
[~2019-10-10] VITALS: Ht 172.7 cm; Wt 125.7 kg
[2019-10-10] MEDS ORDERED: JANUVIA 50 MG T50 M1 PO (21:22)
[2019-10-10] MEDS ORDERED: DULCOLAX STOOL100 M1 PO (21:23)
[2019-10-10] MEDS ORDERED: VITAMIN E1000 UNIT PO (21:24)
[2019-10-10] MEDS ORDERED: LORATIDINE 10 M10 M1 PO (21:25)
[2019-10-10] MEDS ORDERED: VITAMIN B-121000 MC2 PO (21:27)
[2019-10-10] MEDS ORDERED: PROSCAR 5MG TABL5 M1 PO (21:28)
[2019-10-10] MEDS ORDERED: PERCOCET 5-3251 EACH PO (21:32)
[2019-10-10 21:49] VITALS: BP 153/84
== END 2019-10-10 22:07 | disposition home or self-care (01) ==
LOC: ER 20:43
DX: S42.292A Other displaced fracture of upper end of left humerus, initial encounter for closed fracture (principal); I10 Essential (primary) hypertension; E78.00 Pure hypercholesterolemia, unspecified; E11.9 Type 2 diabetes mellitus without complications; Z96.611 Presence of right artificial shoulder joint; Z90.89 Acquired absence of other organs; Z90.49 Acquired absence of other specified parts of digestive tract; Z79.899 Other long term (current) drug therapy; Z79.82 Long term (current) use of aspirin; Z88.8 Allergy status to other drugs, medicaments and biological substances; W18.09XA Striking against other object with subsequent fall, initial encounter; Y93.89 Activity, other specified; Y92.89 Other specified places as the place of occurrence of the external cause; Y99.8 Other external cause status

== ENCOUNTER 2019-10-11 00:25 | Emergency (ER) | payer OTHER, BC ==
[~2019-10-11] VITALS: Ht 167.6 cm; Wt 125.7 kg
[~2019-10-11 00:25] MED LIST changes: +DULCOLAX STOOL100 M1 PO; +JANUVIA 50 MG T50 M1 PO; +LORATIDINE 10 M10 M1 PO; +PERCOCET 5-3251 EACH PO; +PROSCAR 5MG TABL5 M1 PO; +VITAMIN B-121000 MC2 PO; +VITAMIN E1000 UNIT PO
[2019-10-11 00:27] VITALS: BP 195/64
== END 2019-10-11 01:50 | disposition home or self-care (01) ==
LOC: ER 00:25
DX: S80.01XA Contusion of right knee, initial encounter (principal); M79.602 Pain in left arm; I10 Essential (primary) hypertension; E78.00 Pure hypercholesterolemia, unspecified; E11.9 Type 2 diabetes mellitus without complications; G47.30 Sleep apnea, unspecified; Z98.42 Cataract extraction status, left eye; Z98.41 Cataract extraction status, right eye; Z96.651 Presence of right artificial knee joint; Z79.82 Long term (current) use of aspirin; Z79.899 Other long term (current) drug therapy; Z88.8 Allergy status to other drugs, medicaments and biological substances; W01.0XXA Fall on same level from slipping, tripping and stumbling without subsequent striking against object, initial encounter; Y93.89 Activity, other specified; Y92.89 Other specified places as the place of occurrence of the external cause; Y99.8 Other external cause status

== ENCOUNTER → 2019-11-16 | Outpatient (CLI) | payer OTHER, BC | LOC: SJCVCIMAG 11:46 | PROVIDERS: ATTEND Internal Medicine Cardiovascular Disease | DX: Z01.810 Encounter for preprocedural cardiovascular examination (principal); I44.0 Atrioventricular block, first degree; R00.1 Bradycardia, unspecified; I25.10 Atherosclerotic heart disease of native coronary artery without angina pectoris; Z79.82 Long term (current) use of aspirin; Z79.899 Other long term (current) drug therapy; Z88.8 Allergy status to other drugs, medicaments and biological substances ==

== ENCOUNTER → 2019-11-23 | Outpatient (CLI) | payer OTHER, BC ==
[~2019-11-23] MED LIST changes: +CALCIUM500 MG PO; +CYMBALTA60 MG PO; +DILTIAZEM ER180 M2 PO; +NEURONTIN300 MG PO; +VITAMIN D3100 MCG PO
== END ==
LOC: LAB 09:37
PROVIDERS: ATTEND Student in an Organized Health Care Education/Training Program
DX: Z01.812 Encounter for preprocedural laboratory examination (principal); Z11.59 Encounter for screening for other viral diseases

== ENCOUNTER 2019-11-28 09:23 | Inpatient (IN) | payer OTHER, BC ==
[2019-11-23 10:12] LABS: HEMATOCRIT 39.5 % (42.0-52.0); HEMOGLOBIN 12.8 gm/dL (14.0-18.0); MCH 28.9 pg (26.0-34.0); MCHC 32.4 g/dL (28.0-37.0); MCV 89.2 fL (80.0-100.0); RBC 4.43 mil/uL (4.50-6.00); RDW 14.8 % (10.5-14.5); WBC 8.4 thou/uL (4.0-11.0)
[2019-11-23 10:56] LABS: PROTIME 10.3 Seconds (9.3-11.4)
[2019-11-23 11:02] LABS: CALCIUM 8.9 mg/dL (8.5-10.1); CREATININE 0.9 mg/dL (0.7-1.3); POTASSIUM 4.4 mmol/L (3.5-5.1)
[2019-11-23 11:06] LABS: URINE BILIRUBIN NEGATIVE (Negative); URINE BLOOD NEGATIVE (Negative); URINE CLARITY CLEAR; URINE COLOR YELLOW; URINE GLUCOSE-RANDOM* NEGATIVE (Negative); URINE KETONES NEGATIVE (Negative); URINE LEUKOCYTES-REFLEX NEGATIVE (Negative); URINE NITRITE-REFLEX NEGATIVE (Negative); URINE PROTEIN (DIPSTICK) NEGATIVE (Negative); URINE SPECIFIC GRAVITY <= 1.005 (1.005-1.035); URINE UROBILINOGEN 0.2 E.U./dl (0.2-1.0)
[~2019-11-28] VITALS: Ht 170.2 cm; Wt 122.0 kg
--- NOTE | ~2019-11-28 | O ---
[facility] [place] [address] OPERATIVE REPORT Name: ERIC MACK Room #: 440-P ADM IN M.R.#: [id number] Admission: 11/28/19 Attend Phys: Ganga Morales Discharge: Date of : 45 Report #: [id number] THIS REPORT FOR: cc: Breezy Butler,Ganga Keenan MD ~ CC: Ganga Butler PREOPERATIVE DIAGNOSES: Left shoulder pain, proximal humerus fracture, 3-part; glenohumeral joint arthrosis. POSTOPERATIVE DIAGNOSES: Left 3-part proximal humerus fracture with rotator cuff tear and glenohumeral joint arthrosis. PROCEDURE PERFORMED: Left shoulder reverse shoulder arthroplasty. SURGEON: Ganga Rasmussen MD STAFF ELECTRICAL ENGINEER: La Snyder PA-C. ANESTHESIA: General with preoperative ultrasound-guided interscalene block. FLUIDS: 1 liter of crystalloid. ESTIMATED BLOOD LOSS: Approximately 75 mL. IMPLANTS UTILIZED: DePuy Delta Xtend size 42 standard +2 lateralized glenosphere with a standard Metaglene, size 1 left modular eccentric epiphysis with a size 10 Global Unite stem. DESCRIPTION OF PROCEDURE: After proper identification of the patient and operative site in preoperative holding area, the operative site was signed by myself. Prophylactic antibiotics were given. The patient elected to receive an ultrasound-guided block after reviewing the risks, benefits, alternatives and potential complications with Anesthesia. All were answered. The patient and demonstrated an understanding of above noted procedure and wished to proceed. The patient was brought back to the operative suite after induction of satisfactory general anesthesia per endotracheal tube. The patient was carefully positioned in the beach chair with head of bed elevated approximately 40 degrees. Head and neck were carefully placed in neutral position. Two blue towels were placed behind the scapula and left shoulder was sterilely prepped and draped in the usual manner. Final skin draping was with an Ioban drape. A CHARMS PPEC limb positioning system was utilized throughout the entire procedure. Anterior deltopectoral approach was planned. Skin was incised sharply. Full thickness skin flaps were developed. The patient's deltopectoral interval was identified. Cephalic vein was retracted laterally. Subdeltoid [address] [address] OPERATIVE REPORT Name: ERIC MACK Room #: 440-P [facility] IN M.R.#: [id number] Admission: 11/28/19 Attend Phys: Ganga Morales Discharge: Date of : 45 Report #: [id number] adhesions were carefully released and evidence of tuberosity and head fragment malposition was noted. The patient had a rotator cuff tear of the supraspinatus extending back into the infraspinatus and the upper portion of the subscapularis was torn. Extensive biceps tendinopathy was present. Biceps tendon was far medialized. It was released and tenotomized. At this point, the remaining subscapularis was carefully released off the lesser tuberosity fragment, which had attached head portion which had rotated inferior and lateral underneath the more posterior superior head fragment. Through the rotator interval, there also was noted extensive glenoid degenerative change and the patient appeared to be better suited to a reverse total shoulder arthroplasty versus a hemiarthroplasty or total shoulder type construct. At this point, a humeral head osteotomy was performed at 155 degrees and the rotation of this cut was made to retain as much of the bony anatomy as possible. This was then reamed by hand up to a size 10 stem, which matched the preoperative templating. A protection plate was then applied and attention was divided to the glenoid. Anterior capsule was carefully released off the subscapularis. The remaining biceps tendon stump and degenerative labrum were excised circumferentially off the glenoid. Inferior capsule was carefully released off the glenoid. The axillary nerve was identified and protected throughout the entire procedure. A portion of the infraspinatus was still intact. There was excellent glenoid exposure and Metaglene guide was utilized to place the guide pin as inferior as possible. This was placed within the central aspect of the glenoid vault. Glenoid face was reamed. Sher reamer was then utilized. Any peripheral soft tissue was then carefully removed with pituitary rongeur. Step drill was utilized and the guide pin was removed. Central peg was contained. Standard Metaglene was carefully impacted into position and had good rotational stability without any screw placement. Next, inferior and superior locking screws were placed and there were predrilled holes over guidewires. These had good purchase and then an anterior and a posterior drill holes were created and 18 mm nonlocking screws were inserted. Screws were sequentially tightened. Locking screws were then locked and a 42 standard +2 lateralized glenosphere was placed over a guidewire. Its locking screw was rotated counterclockwise until a click was noted and it was felt to be fully seated. This was then tightened and impacted three additional times until it was felt to be fully seated. The guidewire had been removed. Next, the joint was thoroughly irrigated with normal saline. An acetabular reamer was used to ream the epiphyseal portion of the proximal humerus and then a size 1 epiphysis with a size 10 stem was assembled as trial and polyethylene liner was then inserted and it was estimated that a size 12 liner would provide the best overall fit and stability. At this point, two drill holes were placed within the anterior cortex of the humerus where #2 FiberWire were passed. Stem was assembled on the back table. The wound and humerus was then thoroughly irrigated with antibiotic irrigant again. Next, the stem was carefully impacted into position in approximately 20 degrees of retroversion and bone graft was placed around the epiphyseal component for part of the void created by the tuberosity fractures. These were healing to the shaft, but were somewhat unstable. The implant was still stable to rotational [facility] [address] [place] [address] OPERATIVE REPORT Name: ERIC MACK Room #: 440-P ADM IN M.R.#: [id number] Admission: 11/28/19 Attend Phys: Ganga Morales Discharge: Date of : 45 Report #: [id number] stability and press fitting and it appeared to have satisfactory press fit to continue with this. Next, a +9 humeral spacer was applied and then the +3 polyethylene provided the best overall fit and soft tissue tension. Joint was stable with range of motion. It was again irrigated with antibiotic irrigant. Subscapularis was repaired with two modified Zeb-Carlo sutures utilizing #2 FiberWire sutures that had been wrapped around the stem. The infraspinatus was still intact as well. Joint was thoroughly irrigated again, dried 1 gram of vancomycin powder was utilized; half at deep, half at more superficial. Deltopectoral interval was closed with 0 Vicryl, 2-0 Vicryl was used to close subcutaneous tissues, final skin closure was with running 4-0 Monocryl, sealed with Dermabond. Sterile dressing was applied as well as a sling and abduction pillow. The patient at the time of dictation was still in the operative suite with anticipated discharge to recovery room in stable condition. By: 1459 1613 Ganga Rasmussen MD /nt
[2019-11-28 11:08] VITALS: BP 134/59
[2019-11-28 19:25] VITALS: BP 137/55
--- NOTE | 2019-11-28 20:26 | NUR ---
PATIENT ADMITTED FROM OR WITH LEFT SHOULDER CARRILLO ARTHROPLASTY, AQUACEL DRESSING IN PLACE, IMMOBILIZER IN PLACE. PATIENT DENIES PAIN. PATIENT ALERT AND ORIENTED, SLOW TO REPSOND, BUT ANSWERS QUESTIONS WHEN ANSWERED. PRESENT AT BEDSIDE. PATIENT HAS RIGHT HAND IV, WILL HAVE LR AT 80CC/HR STARTED BY MANUELITO/FAZAL. ADMISSION DONE, REPORT GIVEN TO MANUELITO/FAZAL. N0 C/O NAUSEA, UP GRADED DIET TO REGULAR. ACCU CHECK DONE 161. WILL CONTINUE TO MONITOR.
[2019-11-28 23:57] VITALS: BP 131/65
--- NOTE | 2019-11-29 00:18 | NUR ---
ASSUMED PT CARE AT 1900. PT IS A&OX4. FLUIDS/ANTIBIOTICS INFUSING PER ORDER. PT REPORTS NO PAIN - TOLD ME HE IS "TOO STUBBORN TO ASK FOR PAIN MEDICATION." WENT THROUGH MED LIST WITH . OBTAINED ORDERS FROM [employer], HOME MEDS TO BE RESTARTED IN THE AM. PT WAS UNABLE TO URINATE FOR AWHILE, HAS A DIFFICULT TIME STARTING A STREAM. HE WAS FINALLY ABLE TO GO USING THE URINAL. RIGHT SHOULDER IMMOBILIZER IN PLACE. PT IS CURRENTLY SLEEPING WITH CPAP ON AND CALL LIGHT IN REACH.
[2019-11-29 04:00] VITALS: BP 147/61
[2019-11-29 06:02] LABS: HEMATOCRIT 35.8 % (42.0-52.0); HEMOGLOBIN 11.7 gm/dL (14.0-18.0)
[2019-11-29 06:19] LABS: POTASSIUM 4.1 mmol/L (3.5-5.1)
[2019-11-29 07:35] VITALS: BP 129/57
--- NOTE | 2019-11-29 09:10 | NUR ---
ASSESSMENT: CM REVIEWED CHART AND SPOKE WITH PATIENT AND HIS . PT IS HERE DUE TO LEFT SHOULDER TSA. PT REPORTS HE LIVES IN A RANCH STYLE HOME WITH HIS AND DOES NOT HAVE ANY STEPS. PT REPORTS THAT HE AMBULATES USING A CAN AND MOST RECENTLY A WALKER BUT ALSO HAS A WHEELCHAIR AT HOME. PT REPORTS THAT HE HAS GRAB BARS IN THE SHOWER AND HAS A SHOWER BENCH. PT ALSO HAS A CPAP. PT REPORTS HE HAS NOT HAD HH IN THE PAST OR BEEN TO A SNF/REHAB. CM DISCUSSED ROLE. PTS FEELS PATIENT WILL NEED HH AT DISCHARGE AND THEY HAVE NO PREFERENCE OF HH COMPANY. REFERRAL WAS SENT TO [facility] AND CM LEFT VM TO VERIFY IF THEY GO TO [place], [place] AND AWAITING INPUT AT THIS TIME. PT/OT ARE TO SEE PATIENT AND CM WILL CONTINUE TO FOLLOW TO ASSIST NEEDED.
[2019-11-29 13:32] VITALS: BP 129/57
--- NOTE | 2019-11-29 15:25 | NUR ---
Assumed care of pt. 0700. Pt. is calm and cooperative. Pt. does not complain of any pain. Patient and agree that he should stay one more additional night in order to gain back some balance and adress in oncoming pain. Fall precautions in place.
[2019-11-29 16:20] VITALS: BP 142/35
[2019-11-29 20:55] VITALS: BP 154/59
--- NOTE | 2019-11-30 02:53 | NUR ---
ASSUMED PT CARE AT 1900. PT IS A&OX4. PAIN BEING MANAGED WITH PO PAIN MEDS. TRANFERRED FROM THE CHAIR BACK TO BED, PT DID OK. LEFT SHOULDER IMMOBILIZER IN PLACE. FLUIDS INFUSING PER ORDER. USING THE URINAL. NO COMPLAINTS AT THIS TIME.
[2019-11-30 03:30] VITALS: BP 146/53
[2019-11-30 07:18] VITALS: BP 126/45
[2019-11-30 10:44] VITALS: BP 129/57
--- NOTE | 2019-11-30 11:28 | NUR ---
ON-GOING ASSESSMENT: PT HAS ORDERS TO DISCHARGE HOME TODAY WITH HH ([facility]). CM FAXED DISCHARGE ORDERS TO [facility] AND CONFIRMED THEY RECEIVED THEM AND NOTIFIED THEM OF DISCHARGE TODAY.
--- NOTE | 2019-11-30 13:39 | NUR ---
Assumed care of pt. at 0700. Pt. is calm and cooperative and eager for discharge. Patient felt stronger and was able to move with more confidence today. Patient states he is not in pain. Pt. was discharged with all belongings and .
== END 2019-11-30 13:00 | disposition home health service (06) | DRG 483 ==
LOC: PRE 09:23 → TBA 10:20 → 4S 10:20 → PRE 14:24 → 4S 16:48
PROVIDERS: Physician Assistant Surgical; ADMIT Orthopaedic Surgery Sports Medicine; ATTEND Orthopaedic Surgery Sports Medicine
PROC: 0RRK00Z Replacement of Left Shoulder Joint with Reverse Ball and Socket Synthetic Substitute, Open Approach (ICD-10-PCS; principal; 2019-11-28)
PROC: 5A09457 Assistance with Respiratory Ventilation, 24-96 Consecutive Hours, Continuous Positive Airway Pressure (ICD-10-PCS; 2019-11-28)
DX: S42.202A Unspecified fracture of upper end of left humerus, initial encounter for closed fracture (principal); S43.422A Sprain of left rotator cuff capsule, initial encounter; M19.012 Primary osteoarthritis, left shoulder; I10 Essential (primary) hypertension; E78.5 Hyperlipidemia, unspecified; G47.33 Obstructive sleep apnea (adult) (pediatric); E11.42 Type 2 diabetes mellitus with diabetic polyneuropathy; W19.XXXA Unspecified fall, initial encounter; Y93.89 Activity, other specified; Y92.89 Other specified places as the place of occurrence of the external cause; Y99.8 Other external cause status; Z90.49 Acquired absence of other specified parts of digestive tract; Z98.42 Cataract extraction status, left eye; Z98.41 Cataract extraction status, right eye; Z88.8 Allergy status to other drugs, medicaments and biological substances
CPT/HCPCS: 10102; 50010; 50386; 50417; 50697; 50733; 50935; 51320; 52001; 52138; 52256; 53000; 53078; 54118; 56525; 56526; 56530; 57095; 57103; 65131

== ENCOUNTER 2019-12-08 08:13 | Emergency (ER) | payer OTHER, BC ==
[~2019-12-08] VITALS: Ht 172.7 cm; Wt 123.4 kg
[2019-12-08 09:41] VITALS: BP 137/74
== END 2019-12-08 09:41 | disposition home or self-care (01) ==
LOC: ER 08:13
DX: S40.012A Contusion of left shoulder, initial encounter (principal); M96.830 Postprocedural hemorrhage of a musculoskeletal structure following a musculoskeletal system procedure; I10 Essential (primary) hypertension; E11.9 Type 2 diabetes mellitus without complications; E78.5 Hyperlipidemia, unspecified; K21.9 Gastro-esophageal reflux disease without esophagitis; Z90.89 Acquired absence of other organs; Z79.82 Long term (current) use of aspirin; Z79.899 Other long term (current) drug therapy; Z91.048 Other nonmedicinal substance allergy status; X58.XXXA Exposure to other specified factors, initial encounter; Y93.89 Activity, other specified; Y92.89 Other specified places as the place of occurrence of the external cause; Y99.8 Other external cause status

== ENCOUNTER → 2020-05-15 | Outpatient (CLI) | payer OTHER, BC | LOC: SJCVC 09:40 | PROVIDERS: ATTEND Internal Medicine Cardiovascular Disease | DX: I25.10 Atherosclerotic heart disease of native coronary artery without angina pectoris (principal); I65.23 Occlusion and stenosis of bilateral carotid arteries; E78.00 Pure hypercholesterolemia, unspecified; I34.0 Nonrheumatic mitral (valve) insufficiency; E11.9 Type 2 diabetes mellitus without complications; I10 Essential (primary) hypertension; G47.33 Obstructive sleep apnea (adult) (pediatric); I25.2 Old myocardial infarction; Z79.4 Long term (current) use of insulin; Z79.82 Long term (current) use of aspirin; Z79.899 Other long term (current) drug therapy ==

== ENCOUNTER → 2021-02-02 | Outpatient (CLI) | payer OTHER, BC ==
[~2021-02-02] MED LIST changes: -COZAAR 25 MG TA25 M1 PO; +COZAAR 50 MG TA50 M1 PO; +FLOMAX0.4 MG PO; +LOW DOSE ASPIRI81 M1 PO; +METFORMIN HCL500 M3 PO; +VITAMIN D350 MC3 PO; +[UNRECOGNIZED DRUG - OTHER] PO; +[UNRECOGNIZED DRUG - OTHER] PO
== END ==
LOC: LAB 07:42
PROVIDERS: ATTEND Student in an Organized Health Care Education/Training Program
DX: Z01.812 Encounter for preprocedural laboratory examination (principal); Z20.822 Contact with and (suspected) exposure to COVID-19

== ENCOUNTER → 2021-02-04 | Outpatient (CLI) | payer OTHER, BC ==
[~2021-02-04] VITALS: Ht 170.2 cm; Wt 124.7 kg
--- NOTE | 2021-02-04 16:17 | P ---
[facility] [place] [address] PROCEDURE REPORT Name: ERIC MACK Room #: REG [facility].#: [id number] Admission: 02/04/21 Attend Phys: Shyam Walton Discharge: Date of : 45 Report #: [id number] THIS REPORT FOR: cc: Breezy Butler James A. DO McElhinney, Christian C. MD ~ cc: Breezy Butler DO DATE OF SERVICE: 02/04/2021 PROCEDURE PERFORMED: Colonoscopy with biopsies. HISTORY OF PRESENT ILLNESS: The patient is a 75-year-old male with a history of colon polyps, here for routine followup. Denies any symptoms other than constipation. He does take MiraLax on a fairly regular basis. No family history of colon cancer. DESCRIPTION OF PROCEDURE: The risks and benefits of the procedure were explained to the patient, those risks including but not limited to bleeding, perforation and the risk of sedation. He understood these risks and gave informed consent. Sedation was given using propofol per anesthesia. Next, a digital rectal exam was initially performed, which was normal. Next, using a standard Olympus colonoscope, the scope was placed in the patient's anus and advanced under direct vision to the cecum. The overall prep was good. The cecum and ileocecal valve were normal. In the ascending colon, a 3 mm sessile polyp was noted. This was removed with cold forceps, otherwise normal. The transverse, descending colon were normal. Multiple diverticula were noted in the sigmoid colon, otherwise normal. In the rectum, there was a 4 mm sessile polyp. This was removed with cold forceps. On retroflexion, small nonbleeding internal hemorrhoids were noted. The scope was then withdrawn and the procedure terminated. The patient tolerated the procedure well. IMPRESSION: 1. Two small colonic polyps. 2. Sigmoid diverticulosis. 3. Internal hemorrhoids. 4. Otherwise, normal colonoscopy. RECOMMENDATIONS: 1. Await biopsy results. 2. If polyps are adenomas, repeat colonoscopy in 5 years. Otherwise, observe. [facility] [address] [place] [address] PROCEDURE REPORT Name: MARTINAERIC Room #: REG Herbert Phillips#: [id number] Admission: 02/04/21 Attend Phys: Shyam Walton Discharge: Date of : 45 Report #: [id number] Thank you for allowing me to participate in his care. <ELECTRONICALLY SIGNED> By: Shyam Rodriguez MD 02/04/21 1617 0959 [id number] Shyam Rodriguez MD /nt
--- NOTE | 2021-02-06 12:07 | PATH ---
[facility] [address] [place] [address] PATHOLOGY RPT PROCEDURE Name: ERIC HINTON Room #: REG CL M.R.#: [id number] Admission: 02/04/21 Date of : 45 Discharge: Report #: [id number] Path Case #: [id number] [facility] Accession Number: [id number] . 01 Material submitted: . PART A: colon - ASCENDING COLON POLYP. Modifiers: ascending PART B: rectum - RECTAL POLYP . 01 Clinical history: . COLONOSCOPY HX OF POLYPS, DIVERTICULOSIS . 02 Diagnosis: A. Colonic mucosa (ascending colon polyp): - Tubular adenoma. . B. Colonic mucosa (rectal polyp): - Hyperplastic polyp. Q 02/06/2021 1145 Local . 02 Comment: We find no evidence of high grade dysplasia or of malignancy. (MARICARMEN/rosetta; 02/06/2021) . 02 Electronically signed: . Donavan Kitchen MD, Pathologist NPI- [id number] . 01 Gross description: . A. The specimen is submitted in formalin, labeled "Eric Hinton, ascending colon polyp". Received are 3 segments of pale man tissue ranging in size from 0.1 to 0.3 cm in maximum dimensions. The specimen is submitted entirely in cassette A1. . B. The specimen is received in formalin, labeled "Eric Hinton, rectal polyp". Received is a single segment of pale man tissue measuring 0.3 cm in maximum dimensions. The specimen is submitted entirely in cassette B1. ([facility]; 02/05/2021) NRI/NRI 02/05/2021 1459 Local . 02 Pathologist provided ICD-10: D12.2, K62.1 . 02 CPT . 895948, 884308 Specimen Comment: A courtesy copy of this report has been sent to [phone], [id number] [address] PATHOLOGY RPT PROCEDURE Name: ERIC HINTON Room #: REG [facility]#: [id number] Admission: 02/04/21 Date of : 45 Discharge: Report #: [id number] Path Case #: [id number] Specimen Comment: [id number] Specimen Comment: Report sent to / DR DELAC RUZ Performed at: 01 [facility] [address] [place] [address] [id number] MD Mane Ambriz MD Phone: [phone] Performed at: [address] [id number] MD Donavan Kitchen MD Phone: [phone]
== END | disposition home or self-care (01) ==
LOC: GI
PROVIDERS: ATTEND Specialist
DX: K59.00 Constipation, unspecified (principal); D12.2 Benign neoplasm of ascending colon; K62.1 Rectal polyp; K57.30 Diverticulosis of large intestine without perforation or abscess without bleeding; K64.8 Other hemorrhoids; I10 Essential (primary) hypertension; E78.5 Hyperlipidemia, unspecified; E11.9 Type 2 diabetes mellitus without complications; G47.30 Sleep apnea, unspecified; K21.9 Gastro-esophageal reflux disease without esophagitis; N40.0 Benign prostatic hyperplasia without lower urinary tract symptoms; Z86.010 Personal history of colon polyps; Z98.890 Other specified postprocedural states; Z79.899 Other long term (current) drug therapy; Z90.49 Acquired absence of other specified parts of digestive tract; Z98.41 Cataract extraction status, right eye; Z98.42 Cataract extraction status, left eye; Z96.651 Presence of right artificial knee joint; Z85.828 Personal history of other malignant neoplasm of skin
CPT/HCPCS: 62110; 62900

== ENCOUNTER → 2021-02-12 | Outpatient (CLI) | payer OTHER, BC | LOC: SJCVC 09:22 | PROVIDERS: ATTEND Internal Medicine Cardiovascular Disease | DX: R94.31 Abnormal electrocardiogram [ECG] [EKG] (principal); I25.10 Atherosclerotic heart disease of native coronary artery without angina pectoris; I10 Essential (primary) hypertension; E78.00 Pure hypercholesterolemia, unspecified; D04.9 Carcinoma in situ of skin, unspecified; E11.9 Type 2 diabetes mellitus without complications; G47.9 Sleep disorder, unspecified; Z82.79 Family history of other congenital malformations, deformations and chromosomal abnormalities; Z79.82 Long term (current) use of aspirin; Z79.84 Long term (current) use of oral hypoglycemic drugs; Z79.899 Other long term (current) drug therapy; Z88.8 Allergy status to other drugs, medicaments and biological substances ==